=== PATIENT | male | born 1990 | race American Indian/Alaskan Native ===

== ENCOUNTER 2019-08-03 08:24 | Emergency (ER) | payer SELFPAY ==
[2019-08-03 08:31] VITALS: BP 132/85
--- NOTE | 2019-08-03 10:29 | Emergency Department Report ---
ED ENT HPI - General Chief complaint: Dental/Oral Stated complaint: TOOTH PAIN Time Seen by Provider: 08/03/19 09:37 Source: patient Mode of arrival: Ambulatory Limitations: No Limitations - History of Present Illness Initial comments: This is a 29-year-old male nontoxic, well nourished in appearance, no acute signs of distress presents to the ED with c/o of right upper toothache 3 months. Patient denies following up with a dentist. Patient describes toothache as aching level of 8 out of 10. Patient denies any facial swelling. Patient denies any numbness, tingling, fever, chills, headache, stiff neck, abdominal pain, chest pain, shortness of breath. Patient denies any drug allergies or significant past medical history. MD complaint: tooth pain -: month(s) Location: tooth # Severity: mild Severity scale (0 -10): 8 Quality: aching Consistency: constant Improves with: none Worsens with: none Context- Dental: history of dental caries, poor dental care Associated Symptoms: toothache. denies: fever, cough, gum swelling, pain with swallowing, sore throat, tinnitus, hearing loss, discharge from ear, rhinorrhea - Related Data Allergies Allergy/AdvReac Type Severity Reaction Status Date / Time No Known Allergies Allergy Unverified 08/03/19 08:31 ED Dental HPI - General Chief complaint: Dental/Oral Stated complaint: TOOTH PAIN Time Seen by Provider: 08/03/19 09:37 Source: patient Mode of arrival: Ambulatory Limitations: No Limitations - Related Data Allergies Allergy/AdvReac Type Severity Reaction Status Date / Time No Known Allergies Allergy Unverified 08/03/19 08:31 ED Review of Systems ROS: Stated complaint: TOOTH PAIN Other details as noted in HPI Constitutional: denies: chills, fever Eyes: denies: eye pain, eye discharge, vision change ENT: dental pain. denies: ear pain, throat pain Respiratory: denies: cough, shortness of breath, wheezing Cardiovascular: denies: chest pain, palpitations Endocrine: no symptoms reported Gastrointestinal: denies: abdominal pain, nausea, diarrhea Genitourinary: denies: urgency, dysuria Musculoskeletal: denies: back pain, joint swelling, arthralgia Skin: denies: rash, lesions Neurological: denies: headache, weakness, paresthesias Psychiatric: denies: anxiety, depression Hematological/Lymphatic: denies: easy bleeding, easy bruising ED Past Medical Hx - Past Medical History Previous Medical History?: No - Surgical History Past Surgical History?: No - Social History Smoking Status: Current Every Day Smoker Substance Use Type: None ED Physical Exam - General Limitations: No Limitations General appearance: alert, in no apparent distress - Head Head exam: Present: atraumatic, normocephalic - Eye Eye exam: Present: normal appearance - Expanded ENT Exam Expanded Ear exam: Present: normal external inspection Mouth exam: Present: normal external inspection, tongue normal. Absent: drooling, trismus, muffled voice Teeth exam: Present: fractured tooth #, dental tenderness #, other (no facial swelling. no abscess). Absent: gingival enlargement Throat exam: Positive: normal inspection, other (uvula midline). Negative: tonsillar erythema, tonsillomegaly, tonsillar exudate, R peritonsillar mass, L peritonsillar mass - Neck Neck exam: Present: normal inspection, full ROM. Absent: tenderness, meningismus, lymphadenopathy - Extremities Exam Extremities exam: Present: full ROM - Back Exam Back exam: Present: normal inspection, full ROM - Neurological Exam Neurological exam: Present: alert, oriented X3, normal gait - Psychiatric Psychiatric exam: Present: normal affect, normal mood - Skin Skin exam: Present: warm, dry, intact, normal color. Absent: rash ED Course Vital Signs 08/03/19 08:29 Temperature 97.7 F Pulse Rate 74 Respiratory 18 Rate Blood Pressure 132/85 O2 Sat by Pulse 100 Oximetry - Reevaluation(s) Reevaluation #1: 08/03/19 10:27 Patient is speaking in full sentences with no signs of distress noted. ED Medical Decision Making - Medical Decision Making This is a 29-year-old male that presents with chronic dental pain. Patient is stable and was examined by me. There is no abscess. No gingivitis. Patient presents with a nonmedical emergency. Patient was referred to follow-up with a dentist. At time of discharge, the patient does not seem toxic or ill in appearance. No acute signs of distress noted. Patient agrees to discharge treatment plan of care. No further questions noted by the patient. Critical care attestation.: If time is entered above; I have spent that time in minutes in the direct care of this critically ill patient, excluding procedure time. ED Disposition Clinical Impression: Toothache Disposition: Z-07 MED SCREENING EXAM-LEFT Is pt being admited?: No Does the pt Need Aspirin: No Condition: Stable Instructions: Toothache (ED) Additional Instructions: Follow-up with a dentist doctor in 3-5 days or if symptoms worsen and continue return to emergency room as soon as possible. Referrals: PRIMARY CAREMD [Primary Care Provider] - 3-5 Days STANISLAV ZAMARRIPA MD [Staff Physician] - 3-5 Days [facility] [Outside] - 3-5 Days
== END 2019-08-03 10:34 | disposition left against medical advice (07) ==
LOC: ED 08:24
DX: K08.89 Other specified disorders of teeth and supporting structures (principal); F17.200 Nicotine dependence, unspecified, uncomplicated
CPT/HCPCS: 99281

== ENCOUNTER 2020-09-29 23:18 | Emergency (ER) | payer BC ==
[2020-09-30] MEDS ORDERED: ONDANSETRON 4 MG ODT TAB PO ONE (01:34)
[2020-09-30] MEDS ORDERED: HYDROcodone/ACETAMINOPHEN 5-325 MG TAB PO ONE (01:34)
[2020-09-30] MEDS ORDERED: IBUPROFEN 600 MG TAB PO ONE (01:34)
[2020-09-30 01:43] VITALS: BP 145/79
--- NOTE | 2020-09-30 02:30 | XRay Report ---
Left wrist-3 views INDICATION: Pain - injury. COMPARISON: None. IMPRESSION: Comminuted intra-articular and mildly impacted fracture of the distal radius at the leve l of the scaphoid, with considerable surrounding soft tissue swelling. Otherwise unremarkable exam Signer Name: Jeremías Louis MD Signed: 09/30/2020 2:26 AM Workstation Name: [email or web address]
--- NOTE | 2020-09-30 02:31 | XRay Report ---
Left hip-2 views INDICATION: Pain - fall. COMPARISON: None. IMPRESSION: No acute osseous abnormality. Soft tissues are normal. Normal alignment. No significa nt DJD. Incidentally there is a radiopaque foreign body (appears to be nail file) over the right prox imal thigh which may be in the patient's pocket--please correlate. Signer Name: Jeremías Louis MD Signed: 09/30/2020 2:27 AM Workstation Name: [id number]
--- NOTE | 2020-09-30 03:05 | Cat Scan Report ---
CT head without contrast INDICATION : Pt fell off the back of a box truck. Slight L.O.C. and Hematoma. TECHNIQUE: Axial imaging performed from the skull apex through the skull base without the use of con trast. All CT scans at this location are performed using CT dose reduction for ALARA by means of aut omated exposure control. COMPARISON: None FINDINGS: Parenchyma: No acute intracranial hemorrhage or parenchymal abnormality. Ventricles: Ventricles are normal in size and appear symmetric. Soft tissues: Mild posterior scalp swelling left of midline. Bones: No acute osseous abnormality. Sinuses: Sinuses and mastoid air cells are clear. IMPRESSION: Mild posterior scalp swelling. Otherwise unremarkable exam. Signer Name: Jeremías Louis MD Signed: 09/30/2020 3:00 AM Workstation Name: [email or web address] [email or web address]
--- NOTE | 2020-09-30 03:06 | Cat Scan Report ---
CT cervical spine without contrast INDICATION: Pt fell off the back of a box truck. Slight L.O.C. and Hematoma. TECHNIQUE: Axial imaging performed through the cervical spine without the use of contrast. Sagittal and coronal reconstructed images were also reviewed. All CT scans at this location are performed us ing CT dose reduction for ALARA by means of automated exposure control. COMPARISON: None FINDINGS: Alignment: Spinal alignment is normal. Bones: There is no acute osseous abnormality. Mild multilevel discogenic DJD is present. Soft tissues: No acute or significant incidental soft tissue abnormality. IMPRESSION: No acute abnormality. Signer Name: Jeremías Louis MD Signed: 09/30/2020 3:01 AM Workstation Name: [id number]
--- NOTE | 2020-09-30 04:57 | Emergency Department Report ---
ED Fall HPI - General Chief Complaint: Multiple Trauma Stated Complaint: FALL/HEAD/WRIST/ARM PAIN Source: patient Mode of arrival: Ambulatory - History of Present Illness Initial Comments: Patient is a 30-year-old -Hungarian male with a history of asthma who presents to the ED with complaint of acute onset persistent severe left wrist pain and swelling, left hip pain, and occipital scalp swelling with abrasion and headache as well as lightheadedness after he slipped and fell off a truck landing on his back and hitting his occipital scalp over 12 hours ago while at work. Patient states that he got startled after the fall and initially thought that the pain would resolve but in the last 8 hours, the left wrist pain is worsened such that he is unable to perform any active range of motion. Patient states that the pain is worse with any active range of motion of the left wrist. Patient also states that he is up-to-date with all his vaccinations. Patient denies loss of consciousness, dizziness, change in vision, nausea and vomiting, and chest pain or shortness of breath, neck pain, low back pain, abdominal pain, saddle paresthesia, urinary or bowel incontinence, numbness and tingling or weakness of lower and upper extremities bilaterally, seizures or syncope. MD Complaint: fall, other (posterior scalp abrasion and swelling; left wrist pain; left hip pain) -: Sudden, hour(s) (12) Fall From: other (fell off a truck at work) When Fall Occurred: other (12 HOURS AGO) Fall Witnessed: yes, by bystander Place Fall Occurred: work Loss of Consciousness: none Prolonged Down Time?: no Symptoms Prior to Fall: none Location: head, other (left hip pain; left wrist pain) Location - Extremities: Left: Forearm (Left wrist and forearm pain), Thigh (Left hip pain) Severity: severe Severity scale (0 -10): 8 Quality: sharp, aching Context: tripped/slipped Associated Symptoms: headache, lightheaded. denies: neck pain, numbness, weakness, chest paint, shortness of breath, abdominal pain, hematuria, unable to walk, vertigo, confusion - Related Data Previous Rx's Medication Instructions Recorded Last Taken Type Cyclobenzaprine [Flexeril] 10 mg PO TID PRN #21 tablet 09/30/20 Unknown Rx HYDROcodone/APAP 7.5-325 [[place] 1 each PO Q8HR PRN #12 tablet 09/30/20 Unknown Rx 7.5/325] Ibuprofen [Motrin] 600 mg PO Q8H PRN #30 tablet 09/30/20 Unknown Rx Allergies Allergy/AdvReac Type Severity Reaction Status Date / Time No Known Allergies Allergy Unverified 08/03/19 08:31 ED Review of Systems ROS: Stated complaint: FALL/HEAD/WRIST/ARM PAIN Other details as noted in HPI Constitutional: denies: chills, fever Eyes: denies: eye pain, eye discharge, vision change ENT: other (Mildly swollen, localized tenderness on occipital scalp with mild abrasion). denies: ear pain, throat pain Respiratory: denies: cough, shortness of breath, wheezing Cardiovascular: denies: chest pain, palpitations Endocrine: no symptoms reported Gastrointestinal: denies: abdominal pain, nausea, diarrhea Genitourinary: denies: urgency, dysuria Musculoskeletal: joint swelling (Mildly swollen left wrist joint), arthralgia (Left wrist pain with mild swelling; left hip pain), other (Mild neck pain). denies: back pain Skin: other (Mild abrasion on occipital scalp with localized tenderness and swelling). denies: rash, lesions Neurological: headache. denies: weakness, paresthesias Psychiatric: denies: anxiety, depression Hematological/Lymphatic: denies: easy bleeding, easy bruising ED Past Medical Hx - Past Medical History Previous Medical History?: Yes Hx Asthma: Yes - Surgical History Past Surgical History?: No - Social History Smoking Status: Never Smoker Substance Use Type: None - Medications Home Medications: Home Medications Medication Instructions Recorded Confirmed Last Taken Type Cyclobenzaprine [Flexeril] 10 mg PO TID PRN #21 tablet 09/30/20 Unknown Rx HYDROcodone/APAP 7.5-325 [[place] 1 each PO Q8HR PRN #12 tablet 09/30/20 Unknown Rx 7.5/325] Ibuprofen [Motrin] 600 mg PO Q8H PRN #30 tablet 09/30/20 Unknown Rx ED Physical Exam - General Limitations: No Limitations General appearance: alert, in no apparent distress - Head Head exam: Present: other (Mildly swollen, localized tenderness on occipital scalp with mild abrasion) - Eye Eye exam: Present: normal appearance, PERRL, EOMI Pupils: Present: normal accommodation - ENT ENT exam: Present: normal exam, normal orophraynx, mucous membranes moist, TM's normal bilaterally, normal external ear exam - Neck Neck exam: Present: normal inspection, tenderness (Palpable cervical paraspinal musculoskeletal tenderness), full ROM. Absent: meningismus, lymphadenopathy - Respiratory Respiratory exam: Present: normal lung sounds bilaterally. Absent: respiratory distress, wheezes, rales, rhonchi, chest wall tenderness, accessory muscle use, decreased breath sounds - Cardiovascular Cardiovascular Exam: Present: regular rate, normal rhythm, normal heart sounds. Absent: systolic murmur, diastolic murmur, rubs, gallop - GI/Abdominal GI/Abdominal exam: Present: soft, normal bowel sounds. Absent: tenderness, guarding, rebound, hyperactive bowel sounds, hypoactive bowel sounds - Extremities Exam Extremities exam: Present: normal inspection, tenderness (Palpable severe left wrist tenderness with limited range of motion due to pain), normal capillary refill, joint swelling (Mildly swollen left wrist joint), other (Palpable left hip tenderness). Absent: full ROM (Limited range of motion of left wrist joint due to pain), calf tenderness - Back Exam Back exam: Present: normal inspection, full ROM. Absent: tenderness, CVA tenderness (R), CVA tenderness (L), muscle spasm, paraspinal tenderness, vertebral tenderness, rash noted - Neurological Exam Neurological exam: Present: alert, oriented X3, CN II-XII intact, normal gait, reflexes normal - Psychiatric Psychiatric exam: Present: normal affect, normal mood - Skin Skin exam: Present: warm, dry, intact, normal color, abrasion (Small abrasion on occipital scalp with localized tenderness and swelling). Absent: rash ED Course Vital Signs 09/30/20 01:15 Temperature 98.9 F Pulse Rate 89 Respiratory 18 Rate Blood Pressure 145/79 O2 Sat by Pulse 99 Oximetry ED Medical Decision Making - Radiology Data Radiology results: report reviewed, image reviewed [facility] [address] [place] [address] Cat Scan Report Signed Patient: ROLDAN BUCKLEY JR MR#: [id number] : 1990 Acct:[id number] Age/Sex: 30 / M ADM Date: 09/29/20 Loc: ED Attending Dr: Ordering Physician: DENIZ CACERES Date of Service: 09/30/20 Procedure(s): CT head/brain wo con Accession Number(s): [id number] cc: DENIZ CACERES CT head without contrast INDICATION : Pt fell off the back of a box truck. Slight L.O.C. and Hematoma. TECHNIQUE: Axial imaging performed from the skull apex through the skull base without the use of contrast. All CT scans at this location are performed using CT dose reduction for ALARA by means of automated exposure control. COMPARISON: None FINDINGS: Parenchyma: No acute intracranial hemorrhage or parenchymal abnormality. Ventricles: Ventricles are normal in size and appear symmetric. Soft tissues: Mild posterior scalp swelling left of midline. Bones: No acute osseous abnormality. Sinuses: Sinuses and mastoid air cells are clear. IMPRESSION: Mild posterior scalp swelling. Otherwise unremarkable exam. Signer Name: Jeremías Louis MD Signed: 09/30/2020 3:00 AM Workstation Name: [id number] Transcribed By: KURT Dictated By: Jeremías Louis MD Electronically Authenticated By: Jeremías Louis MD Signed Date/Time: 09/30/20299 DD/ 8 TD/TT: [facility] [address] [place] [address] Cat Scan Report Signed Patient: ROLDAN BUCKLEY JR MR#: [id number] : 1990 Acct:[id number] Age/Sex: 30 / M ADM Date: 09/29/20 Loc: ED Attending Dr: Ordering Physician: DENIZ CACERES Date of Service: 09/30/20 Procedure(s): CT cervical spine wo con Accession Number(s): [id number] cc: DENIZ CACERES CT cervical spine without contrast INDICATION: Pt fell off the back of a box truck. Slight L.O.C. and Hematoma. TECHNIQUE: Axial imaging performed through the cervical spine without the use of contrast. Sagittal and coronal reconstructed images were also reviewed. All CT scans at this location are performed using CT dose reduction for ALARA by means of automated exposure control. COMPARISON: None FINDINGS: Alignment: Spinal alignment is normal. Bones: There is no acute osseous abnormality. Mild multilevel discogenic DJD is present. Soft tissues: No acute or significant incidental soft tissue abnormality. IMPRESSION: No acute abnormality. Signer Name: Jeremías Louis MD Signed: 09/30/2020 3:01 AM Workstation Name: [id number] Transcribed By: JW Dictated By: Jeremías Louis MD Electronically Authenticated By: Jeremías Louis MD Signed Date/Time: 09/30/20300 DD/ 9 TD/TT: [facility] [address] [place] [address] XRay Report Signed Patient: ROLDAN BUCKLEY JR MR#: [id number] : 1990 Acct:[id number] Age/Sex: 30 / M ADM Date: 09/29/20 Loc: ED Attending Dr: Ordering Physician: DENIZ CACERES Date of Service: 09/30/20 Procedure(s): XR hip 2-3V LT Accession Number(s): [id number] cc: DENIZ CACERES Fluoro Time In Minutes: Left hip-2 views INDICATION: Pain - fall. COMPARISON: None. IMPRESSION: No acute osseous abnormality. Soft tissues are normal. Normal alignment. No significant DJD. Incidentally there is a radiopaque foreign body (appears to be nail file) over the right proximal thigh which may be in the patient's pocket--please correlate. Signer Name: Jeremías Louis MD Signed: 09/30/2020 2:27 AM Workstation Name: [id number] Transcribed By: JW Dictated By: Jeremías Louis MD Electronically Authenticated By: Jeremías Louis MD Signed Date/Time: 09/30/20226 DD/ 5 TD/TT: [facility] [address] [place] [address] XRay Report Signed Patient: ROLDAN BUCKLEY JR MR#: [id number] : 1990 Acct:[id number] Age/Sex: 30 / M ADM Date: 09/29/20 Loc: ED Attending Dr: Ordering Physician: DENIZ CACERES Date of Service: 09/30/20 Procedure(s): XR wrist 3+V LT Accession Number(s): [id number] cc: DENIZ CACERES Fluoro Time In Minutes: Left wrist-3 views INDICATION: Pain - injury. COMPARISON: None. IMPRESSION: Comminuted intra-articular and mildly impacted fracture of the distal radius at the level of the scaphoid, with considerable surrounding soft tissue swelling. Otherwise unremarkable exam Signer Name: Jeremías Louis MD Signed: 09/30/2020 2:26 AM Workstation Name: [id number] Transcribed By: KURT Dictated By: Jeremías Louis MD Electronically Authenticated By: Jeremías Louis MD Signed Date/Time: 09/30/20225 DD/ 4 TD/TT: - Medical Decision Making This is a 30-year-old -Hungarian male with a history of asthma who presents to the ED with complaint of acute onset persistent severe left wrist pain and swelling, left hip pain, and occipital scalp swelling with abrasion and headache as well as lightheadedness after he slipped and fell off a truck landing on his back and hitting his occipital scalp over 12 hours ago while at work. Patient states that he got startled after the fall and initially thought that the pain would resolve but in the last 8 hours, the left wrist pain is worsened such that he is unable to perform any active range of motion. Patient states that the pain is worse with any active range of motion of the left wrist. Patient also states that he is up-to-date with all his vaccinations. In the ED, patient is alert and oriented x3 and is not in any distress. Patient however appears to be in pain and is hemodynamically stable. Patient was treated for pain in the ED with pain medications, and head CT scan without contrast showed no acute intracranial abnormalities or hemorrhage but soft tissue swelling on the occipital scalp. C-spine CT scan without contrast showed no acute cervical disc or spine fractures and subluxations. The left hip x-ray showed no acute fractures or subluxations. The left wrist x-ray showed comminuted intra-articular and mildly impacted fracture of the distal radius at the level of the scaphoid, with considerable surrounding soft tissue swelling. On reevaluation, patient's pain is well controlled medications. Left wrist fracture was splinted with a sugar tong splint and the patient was discharged home on pain medications and muscle relaxants and given a referral to the orthopedic surgeon on-call Dr. Dixon for follow-up. Patient is advised to contact Dr. Dixon's office first thing in the morning today September 30, 2020 to schedule a follow-up appointment. Patient was advised return to the ED immediately if symptoms get worse. - Differential Diagnosis Wrist fracture; hip fracture; cervical sprain; scalp contusion; head injury Critical care attestation.: If time is entered above; I have spent that time in minutes in the direct care of this critically ill patient, excluding procedure time. ED Disposition Clinical Impression: Contusion of left hip, initial encounter Closed comminuted fracture of waist of scaphoid of left wrist Qualifiers: Encounter type: initial encounter Qualified Code(s): S62.022A - Displaced fracture of middle third of navicular [scaphoid] bone of left wrist, initial encounter for closed fracture Fracture of distal end of left radius Qualifiers: Encounter type: initial encounter Fracture type: closed Fracture morphology: Colles' Qualified Code(s): S52.532A - Colles' fracture of left radius, initial encounter for closed fracture Contusion of face, scalp and neck Qualifiers: Encounter type: initial encounter Qualified Code(s): S00.83XA - Contusion of other part of head, initial encounter; S00.03XA - Contusion of scalp, initial encounter; S10.93XA - Contusion of unspecified part of neck, initial encounter Disposition: TO HOME OR SELFCARE Is pt being admited?: No Does the pt Need Aspirin: No Condition: Stable Instructions: Wrist Fracture Treated With Immobilization, [id number], Facial or Scalp Contusion, [id number], Contusion, [id number] Additional Instructions: The imaging report for head, neck and hip are all unremarkable. The left wrist x-ray however shows comminuted fracture of distal left radius. Therefore take medications with food, drink plenty of fluids and follow-up with the orthopedic surgeon Dr. Dixon for further evaluation. Contact Dr. Dixon's office first thing this morning September to schedule a follow-up appointment. Return to the ED immediately if symptoms get worse. Prescriptions: Cyclobenzaprine [Flexeril] 10 mg PO TID PRN #21 tablet PRN Reason: Muscle Spasm Ibuprofen [Motrin] 600 mg PO Q8H PRN #30 tablet PRN Reason: Pain HYDROcodone/APAP 7.5-325 [[place] 7.5/325] 1 each PO Q8HR PRN #12 tablet PRN Reason: Pain Referrals: VERONICA DIXON MD [Staff Physician] - 3-5 Days Forms: Work/School Release Form(ED) Time of Disposition: 05:11 Print Language: IRISH
== END 2020-09-30 05:55 | disposition home or self-care (01) ==
LOC: ED 23:18
DX: S52.502A Unspecified fracture of the lower end of left radius, initial encounter for closed fracture (principal); S62.002A Unspecified fracture of navicular [scaphoid] bone of left wrist, initial encounter for closed fracture; S00.03XA Contusion of scalp, initial encounter; S70.02XA Contusion of left hip, initial encounter; J45.909 Unspecified asthma, uncomplicated; Z79.1 Long term (current) use of non-steroidal anti-inflammatories (NSAID); Z79.899 Other long term (current) drug therapy; W17.89XA Other fall from one level to another, initial encounter; Y93.89 Activity, other specified; Y92.89 Other specified places as the place of occurrence of the external cause; Y99.0 Civilian activity done for income or pay
CPT/HCPCS: 70450; 72125; Q0162